=== PATIENT | male | born 1960 | race Two or more races ===

== ENCOUNTER 2025-05-25 08:50 | Observation (INO) | payer BC ==
--- NOTE | 2025-05-25 09:34 | ED ---
General Adult HPI - General Chief complaint: Chest Pain Stated complaint: Chest pain Time Seen by Provider: 05/25/25 08:59 Source: patient Mode of arrival: ambulatory Limitations: no limitations - History of Present Illness Initial comments: Dictation was produced using [employer] dictation software. please excuse any grammatical, word or spelling errors. Chief Complaint: 64-year-old male with chest pain History of Present Illness: Patient 64-year-old male presents to the emergency department chest pain. Patient has history of coronary artery disease states that he has substernal chest pain not associate diaphoresis or nausea. He has been having ongoing intermittent episodes of chest pain for the last month. The ROS documented in this emergency department record has been reviewed and confirmed by me. Those systems with pertinent positive or negative responses have been documented in the HPI. All other systems are other negative and/or no ncontributory. - Related Data Home Medications Medication Instructions Recorded Confirmed Atorvastatin [Lipitor] 40 mg PO DAILY 05/25/25 05/25/25 Cholecalciferol (Vitamin D3) 125 mcg PO DAILY 05/25/25 05/25/25 [Vitamin D3 (125 MCG = 5,000 IU)] Glimepiride [Amaryl] 4 mg PO BID 05/25/25 05/25/25 HYDROcodone/APAP 10-325MG [[place] 1 tab PO TID PRN 05/25/25 05/25/25 10-325] Isosorbide Mononitrate ER [Imdur] 30 mg PO DAILY 05/25/25 05/25/25 Nitroglycerin Sl Tabs [Nitrostat] 0.4 mg SL Q5M PRN 05/25/25 05/25/25 Semaglutide [Rybelsus] 7 mg PO DAILY 05/25/25 05/25/25 carvediloL [Coreg] 3.125 mg PO BID 05/25/25 05/25/25 lisinopriL [Zestril] 5 mg PO DAILY 05/25/25 05/25/25 metFORMIN HCL [Glucophage] 250 mg PO DAILY 05/25/25 05/25/25 Allergies Allergy/AdvReac Type Severity Reaction Status Date / Time No Known Allergies Allergy Verified 05/25/25 11:12 Review of Systems ROS Statement: Those systems with pertinent positive or pertinent negative responses have been documented in the HPI. ROS Other: All systems not noted in ROS Statement are negative. Past Medical History Past Medical History: Dialysis, Hyperlipidemia, Hypertension History of Any Multi-Drug Resistant Organisms: None Reported Past Surgical History: Heart Catheterization With Stent, Tonsillectomy Past Psychological History: No Psychological Hx Reported Smoking Status: Never smoker Past Alcohol Use History: Rare Past Drug Use History: Marijuana General Exam - General Exam Comments Initial Comments: PHYSICAL EXAM: General Impression: Alert and oriented x3, not in acute distress HEENT: Normocephalic atraumatic, extra-ocular movements intact, pupils equal and reactive to light bilaterally, mucous membranes moist. Cardiovascular: Heart regular rate and rhythm Chest: Able to complete full sentences, no retractions, no tachypnea Abdomen: abdomen soft, non-tender, non-distended, no organomegaly Musculoskeletal: Pulses present and equal in all extremities, no peripheral edema Motor: no focal deficits noted Neurological: CN II-XII grossly intact, no focal motor or sensory deficits noted Skin: Intact with no visualized rashes Psych: Normal affect and mood Limitations: no limitations Course Vital Signs 05/25/25 08:53 Temperature 97.4 F L Pulse Rate 102 H Respiratory 20 Rate Blood Pressure 145/82 O2 Sat by Pulse 99 Oximetry EKG Findings - EKG Comments: EKG Findings:: My EKG interpretation: Ventricular rate 94, sinus rhythm, OH interval 143, QRS 112, QTc 388. No OH prolongation, no QTC prolongation, no ST or T-wave changes noted. Overall, this EKG is unremarkable Medical Decision Making - Medical Decision Making Was pt. sent in by a medical professional or institution (, PA, MARBLE SETTER, urgent care, hospital, or jail...) When possible be specific @ -No Did you speak to anyone other than the patient for history (EMS, parent, family, police, friend...)? What history was obtained from this source @ -No Did you review nursing and triage notes (agree or disagree)? Why? @ -I reviewed and agree with nursing and triage notes Were old charts reviewed (outside hosp., previous admission, EMS record, old EKG, old radiological studies, urgent care reports/EKG's, jail records)? Report findings @ -No old charts were reviewed Differential Diagnosis (chest pain, altered mental status, abdominal pain women, abdominal pain men, vaginal bleeding, musculoskeletal, weakness, fever, dyspnea, syncope, headache, dizziness, GI bleed, back pain, seizure, CVA, palpatations, mental health)? @ -Differential Chest Pain: Stable Angina, Unstable Angina, STEMI, NSTEMI Aortic Dissection, Pneumothorax, Musculoskeletal, Esophageal Spasm GERD, Cholecystitis, Pancreatitis, Zoster, this is not meant to be an all-inclusive list. EKG interpreted by me (3pts min.). @ -See above X-rays interpreted by me (1pt min.). @ -Chest x-ray is nonacute CT interpreted by me (1pt min.). @ -None done U/S interpreted by me (1pt. min.). @ -None done What testing was considered but not performed or refused? (CT, X-rays, U/S, labs)? Why? @ -None What meds were considered but not given or refused? Why? @ -None Was smoking cessation discussed for >3mins.? @ -No Were there social determinants of health that impacted care today? How? (Homelessness, low income, unemployed, alcoholism, drug addiction, transportation, low edu. Level, literacy, decrease access to med. care, care home, rehab)? @ -No Was there de-escalation of care discussed even if they declined (Discuss DNR or withdrawal of care, Hospice)? DNR status @ -No What co-morbidities impacted this encounter? (DM, HTN, Smoking, COPD, CAD, Cancer, CVA, ARF, Chemo, Hep., AIDS, mental health diagnosis, sleep apnea, morbid obesity)? @ -Coronary artery disease Was patient admitted / discharged? Hospital course, mention meds given and route, prescriptions, significant lab abnormalities, going to OR and other pertinent info. @ -64-year-old male with chest pain concerning for ACS. Vital signs stable. Laboratory evaluation is unremarkable. EKG is negative. Patient be admitted to cardiology in consultation. Case discussed with hospitalist for admission Did you discuss the management of the patient with other professionals (professionals i.e. , PA, MARBLE SETTER, lab, RT, psych nurse, social media strategist, personal service workers, teacher, transit authority police officer, counseling case manager)? Give summary @ -See above Was critical care preformed (if so, how long)? @ -No Undiagnosed new problem with uncertain prognosis? @ -No Drug Therapy requiring intensive monitoring for toxicity (Heparin, Nitro, Insulin, Cardizem)? @ -No Were any procedures done? @ -No Diagnosis/symptom? Acute, or Chronic, or Acute on Chronic? Uncomplicated (without systemic symptoms) or Complicated (systemic symptoms)? @ -Chest pain Side effects of treatment? @ -No Exacerbation, Progression, or Severe Exacerbation? @ -No Poses a threat to life or bodily function? How? (Chest pain, [place], [place], pneumonia, PE, COPD, DKA, ARF, appy, cholecystitis, CVA, Diverticulitis, Homicidal, Suicidal, threat to staff... and all critical care pts) @ -Yes - Lab Data Result diagrams: 05/25/25 09:40 05/25/25 09:40 Lab Results 05/25/25 05/25/25 05/25/25 Range/Units 09:40 09:40 09:40 WBC 8.47 (4.50-10.00) 10*3/uL RBC 5.19 (4.40-5.60) 10*6/uL Hgb 15.8 (13.0-17.0) g/dL Hct 45.8 (39.6-50.0) % MCV 88.2 (80.0-97.0) fL MCH 30.4 (27.0-32.0) pg MCHC 34.5 (32.0-37.0) g/dL Plt Count 151 (140-440) 10*3/uL MPV 10.2 (9.5-12.2) fL Immature Gran % (Auto) 0.4 % Neutrophils % 68.0 % Lymphocytes % 23.0 % Monocytes % 6.8 % Eosinophils % 1.3 % Basophils % 0.5 % Immature Gran # 0.03 (0.00-0.04) 10*3/uL Neutrophils # 5.76 (1.80-7.70) 10*3/uL Lymphocytes # 1.95 (0.90-5.00) 10*3/uL Monocytes # 0.58 (0.20-1.00) 10*3/uL Eosinophils # 0.11 (0.04-0.35) 10*3/uL Basophils # 0.04 (0.00-0.10) 10*3/uL PT 11.1 (10.0-12.5) sec INR 1.0 (<1.2) APTT 23.6 (22.0-30.0) sec Sodium 133 L (137-145) mmol/L Potassium 4.9 (3.5-5.1) mmol/L Chloride 102 (98-107) mmol/L Carbon Dioxide 19 L (22-30) mmol/L Anion Gap 12 mmol/L BUN 16 (9-20) mg/dL Creatinine 0.62 L (0.66-1.25) mg/dL Est GFR (CKD-EPI)AfAm >90 (>60 ml/min/1.73 sqM) Est GFR (CKD-EPI)NonAf >90 (>60 ml/min/1.73 sqM) Glucose 275 H (74-99) mg/dL Calcium 9.8 (8.4-10.2) mg/dL Magnesium 1.5 L (1.6-2.3) mg/dL Total Bilirubin 1.1 (0.2-1.3) mg/dL AST 36 (17-59) U/L ALT 32 (4-49) U/L Alkaline Phosphatase 103 (38-126) U/L Troponin I (0.000-0.034) ng/mL Total Protein 7.5 (6.3-8.2) g/dL Albumin 4.0 (3.5-5.0) g/dL / Range/Units 09:40 WBC (4.50-10.00) 10*3/uL RBC (4.40-5.60) 10*6/uL Hgb (13.0-17.0) g/dL Hct (39.6-50.0) % MCV (80.0-97.0) fL MCH (27.0-32.0) pg MCHC (32.0-37.0) g/dL Plt Count (140-440) 10*3/uL MPV (9.5-12.2) fL Immature Gran % (Auto) % Neutrophils % % Lymphocytes % % Monocytes % % Eosinophils % % Basophils % % Immature Gran # (0.00-0.04) 10*3/uL Neutrophils # (1.80-7.70) 10*3/uL Lymphocytes # (0.90-5.00) 10*3/uL Monocytes # (0.20-1.00) 10*3/uL Eosinophils # (0.04-0.35) 10*3/uL Basophils # (0.00-0.10) 10*3/uL PT (10.0-12.5) sec INR (<1.2) APTT (22.0-30.0) sec Sodium (137-145) mmol/L Potassium (3.5-5.1) mmol/L Chloride (98-107) mmol/L Carbon Dioxide (22-30) mmol/L Anion Gap mmol/L BUN (9-20) mg/dL Creatinine (0.66-1.25) mg/dL Est GFR (CKD-EPI)AfAm (>60 ml/min/1.73 sqM) Est GFR (CKD-EPI)NonAf (>60 ml/min/1.73 sqM) Glucose (74-99) mg/dL Calcium (8.4-10.2) mg/dL Magnesium (1.6-2.3) mg/dL Total Bilirubin (0.2-1.3) mg/dL AST (17-59) U/L ALT (4-49) U/L Alkaline Phosphatase (38-126) U/L Troponin I <0.012 (0.000-0.034) ng/mL Total Protein (6.3-8.2) g/dL Albumin (3.5-5.0) g/dL Disposition Clinical Impression: Chest pain Disposition: ADMITTED IP TO THIS [facility] Condition: Fair Referrals: Lawrence Kennedy MD [Primary Care Provider] - 1-2 days Decision Time: 12:04
[2025-05-25 10:03] LABS: Basophils # (A) 0.04 10*3/uL (0.00-0.10); Basophils % (A) 0.5 %; Eosinophils # (A) 0.11 10*3/uL (0.04-0.35); Eosinophils % (A) 1.3 %; HCT 45.8 % (39.6-50.0); HGB 15.8 g/dL (13.0-17.0); Lymphocytes # (A) 1.95 10*3/uL (0.90-5.00); Lymphocytes % (A) 23.0 %; MCH 30.4 pg (27.0-32.0); MCHC 34.5 g/dL (32.0-37.0); MCV 88.2 fL (80.0-97.0); Monocytes # (A) 0.58 10*3/uL (0.20-1.00); Monocytes % (A) 6.8 %; Neutrophils # (A) 5.76 10*3/uL (1.80-7.70); Neutrophils % (A) 68.0 %; Platelet Count 151 10*3/uL (140-440); RBC 5.19 10*6/uL (4.40-5.60); RDW 12.4 % (11.5-14.5); WBC 8.47 10*3/uL (4.50-10.00)
--- NOTE | 2025-05-25 10:15 | XR ---
EXAMINATION TYPE: XR chest 2V DATE OF EXAM: 05/25/2025 10:11 AM COMPARISON: Chest radiograph 10/10/2010 TECHNIQUE: XR chest 2V Frontal and lateral views of the chest. CLINICAL INDICATION:Male, 64 years old with history of Chest Pain; FINDINGS: Lungs/Pleura: There is no evidence of pleural effusion, focal consolidation, or pneumothorax. Pulmonary vascularity: Unremarkable. Heart/mediastinum: Cardiomediastinal silhouette is unremarkable. Musculoskeletal: Multiple level degenerative disc disease changes seen throughout the spine. IMPRESSION: No acute cardiopulmonary disease/process. [facility], , 05/25/2025 10:12 AM
[2025-05-25 10:21] LABS: ALT 32 U/L (4-49); African American GFR (CKD) >90 (>60 ml/min/1.73 sqM); Albumin 4.0 g/dL (3.5-5.0); Anion Gap 12 mmol/L; Blood Urea Nitrogen 16 mg/dL (9-20); Calcium 9.8 mg/dL (8.4-10.2); Carbon Dioxide 19 mmol/L (22-30); Chloride 102 mmol/L (98-107); Glucose 275 mg/dL (74-99); Non-African American GFR(CKD) >90 (>60 ml/min/1.73 sqM); Sodium 133 mmol/L (137-145); Total Protein 7.5 g/dL (6.3-8.2)
[2025-05-25 10:23] LABS: AST 36 U/L (17-59); Alkaline Phosphatase 103 U/L (38-126); Magnesium 1.5 mg/dL (1.6-2.3); Potassium 4.9 mmol/L (3.5-5.1)
[2025-05-25 10:39] LABS: INR 1.0 (<1.2); Partial Thromboplastin Time 23.6 sec (22.0-30.0); Prothrombin Time 11.1 sec (10.0-12.5)
[2025-05-25] MEDS ORDERED: NITROGLYCERIN SL TABS 0.4 MG TAB SUBLINGUAL PRN (12:00)
[2025-05-25] MEDS: ASPIRIN 81 MG PO STA (12:30)
--- NOTE | 2025-05-25 13:05 | P.CRDCN ---
History of Present Illness History of present illness: HISTORY OF PRESENT ILLNESS: This is a 64-year-old male with a past medical history significant for coronary artery disease, cardiomyopathy, hypertension, hyperlipidemia, and diabetes. Jennifer carrillopraveen follows in the office with Dr. Lyle. We have been asked to see the patient in consultation for chest pain. Patient examined at the bedside in the emergency room. Patient states that he woke up at 5:00 in the morning from sleep with chest discomfort. He states the pain was in the middle of his chest. He denied any radiation of the pain. He states the pain was worse with deep inspiration. He also reports having some nausea. At the time of examination he is chest pain-free. DIAGNOSTICS: - EKG reveals sinus mechanism with LVH. - Chest xray negative for acute process - Laboratory data: Troponin negative x 1 - Current home cardiac medications include Imdur 30 mg daily, carvedilol 3.125 mg twice a day, Lipitor 40 mg daily, lisinopril 5 mg daily. - Most recent echocardiogram obtained in August 2024 revealed ejection fraction 42%, mild MR, mild TR - Cardiac catheterization history: July 2015 revealing 40% mid LAD, 95% mid circumflex, 100% mid RCA, right dominant system. Patient underwent stenting of the mid circumflex. - Patient underwent Lexiscan stress test in September 2024 revealing EF 45%, fixed inferior and inferior lateral defect REVIEW OF SYSTEMS: At the time of my exam: CONSTITUTIONAL: Denies fever or chills. HEENT: Denies blurred vision, vision changes, or eye pain. Denies hemoptysis CARDIOVASCULAR: Denies chest pain. Denies orthopnea. Denies PND. Denies palpitations RESPIRATORY: Denies shortness of breath. GASTROINTESTINAL: Denies abdominal pain. Denies nausea or vomiting. HEMATOLOGIC: Denies bleeding disorders. GENITOURINARY: Denies any blood in urine. SKIN: Denies pruitis. Denies rash. PHYSICAL EXAM: VITAL SIGNS: Reviewed. GENERAL: Well-developed in no acute distress. HEENT: Head is normocephalic. Pupils are equal, round. Sclerae anicteric. Mucous membranes of the mouth are moist. Neck supple. No JVD or thyromegaly LUNGS: Respirations even and unlabored. Lungs essentially clear to auscultation bilaterally. HEART: Regular rate and rhythm. S1 and S2 heard. ABDOMEN: Soft. Nondistended. Nontender. EXTREMITIES: Normal range of motion. No clubbing or cyanosis. Peripheral pulses intact. No lower extremity edema NEUROLOGIC: Awake and alert. Oriented x 3. ASSESSMENT: Chest pain, atypical, respirophasic, troponin negative x 1 Coronary artery disease with previous stenting Ischemic cardiomyopathy, EF 42% Hypertension Hyperlipidemia Diabetes Obesity: BMI 38.6 PLAN: Obtain 2D echo to assess cardiac structure and function Trend troponins Resume home cardiac medications Continue to monitor patient for additional 24 hours Possible discharge home tomorrow pending troponins and echocardiogram Nurse practitioner note has been reviewed by physician. Signing provider agrees with the documented findings, assessment, and plan of care documented by DEVICE TEST ENGINEER as a scribe. Past Medical History Past Medical History: Dialysis, Hyperlipidemia, Hypertension History of Any Multi-Drug Resistant Organisms: None Reported Past Surgical History: Heart Catheterization With Stent, Tonsillectomy Past Psychological History: No Psychological Hx Reported Smoking Status: Never smoker Past Alcohol Use History: Rare Past Drug Use History: Marijuana Medications and Allergies Home Medications Medication Instructions Recorded Confirmed Type Atorvastatin [Lipitor] 40 mg PO DAILY 05/25/25 05/25/25 History Cholecalciferol (Vitamin D3) 125 mcg PO DAILY 05/25/25 05/25/25 History [Vitamin D3 (125 MCG = 5,000 IU)] Glimepiride [Amaryl] 4 mg PO BID 05/25/25 05/25/25 History HYDROcodone/APAP 10-325MG [[place] 1 tab PO TID PRN 05/25/25 05/25/25 History 10-325] Isosorbide Mononitrate ER [Imdur] 30 mg PO DAILY 05/25/25 05/25/25 History Nitroglycerin Sl Tabs [Nitrostat] 0.4 mg SL Q5M PRN 05/25/25 05/25/25 History Semaglutide [Rybelsus] 7 mg PO DAILY 05/25/25 05/25/25 History carvediloL [Coreg] 3.125 mg PO BID 05/25/25 05/25/25 History lisinopriL [Zestril] 5 mg PO DAILY 05/25/25 05/25/25 History metFORMIN HCL [Glucophage] 250 mg PO DAILY 05/25/25 05/25/25 History Allergies Allergy/AdvReac Type Severity Reaction Status Date / Time No Known Allergies Allergy Verified 05/25/25 11:12 Physical Exam Vitals: Vital Signs Temp Pulse Resp BP Pulse Ox 05/25/25 08:53 97.4 F L 102 H 20 145/82 99 Intake and Output 05/24/25 05/25/25 05/25/25 22:59 06:59 14:59 Other: Weight 102.058 kg Results 05/25/25 09:40 05/25/25 09:40 Cardiac Enzymes 05/25/25 05/25/25 05/25/25 Range/Units 09:40 09:40 12:07 AST 36 (17-59) U/L Troponin I <0.012 <0.012 (0.000-0.034) ng/mL Coagulation 05/25/25 Range/Units 09:40 PT 11.1 (10.0-12.5) sec APTT 23.6 (22.0-30.0) sec CBC 05/25/25 Range/Units 09:40 WBC 8.47 (4.50-10.00) 10*3/uL RBC 5.19 (4.40-5.60) 10*6/uL Hgb 15.8 (13.0-17.0) g/dL Hct 45.8 (39.6-50.0) % Plt Count 151 (140-440) 10*3/uL Comprehensive Metabolic Panel 05/25/25 Range/Units 09:40 Sodium 133 L (137-145) mmol/L Potassium 4.9 (3.5-5.1) mmol/L Chloride 102 (98-107) mmol/L Carbon Dioxide 19 L (22-30) mmol/L BUN 16 (9-20) mg/dL Creatinine 0.62 L (0.66-1.25) mg/dL Glucose 275 H (74-99) mg/dL Calcium 9.8 (8.4-10.2) mg/dL AST 36 (17-59) U/L ALT 32 (4-49) U/L Alkaline Phosphatase 103 (38-126) U/L Total Protein 7.5 (6.3-8.2) g/dL Albumin 4.0 (3.5-5.0) g/dL Current Medications Generic Name Dose Route Start Last Admin Trade Name Freq PRN Reason Stop Dose Admin Aspirin 81 mg 05/26/25 09:00 Aspirin 81 Mg PO DAILY [facility] Atorvastatin Calcium 40 mg 05/26/25 09:00 Atorvastatin 40 Mg Tab PO DAILY [facility] Carvedilol 3.125 mg 05/25/25 17:30 Carvedilol 3.125 Mg Tab PO BID-W/MEALS KAREN Isosorbide Mononitrate 30 mg 05/26/25 09:00 Isosorbide Mononitrate Er 30 Mg Tab.Er.24h PO DAILY [facility] Lisinopril 5 mg 05/26/25 09:00 Lisinopril 5 Mg Tab PO DAILY [facility] Nitroglycerin 0.4 mg 05/25/25 12:00 Nitroglycerin Sl Tabs 0.4 Mg Tab SUBLINGUAL Q5M PRN Chest Pain Intake and Output 05/24/25 05/25/25 05/25/25 22:59 06:59 14:59 Other: Weight 102.058 kg Patient Weight 05/26/25 06:59 Weight 102.058 kg 05/25/25 09:40 05/25/25 09:40
[2025-05-25 20:57] LABS: Glucose,Whole Blood 296 mg/dL (70-110)
[2025-05-25 21:58] VITALS: RESP 17
--- NOTE | 2025-05-26 07:40 | CA ---
Transthoracic Echo Report Name: Chris Esposito Age: 64 Gender: M : 1960 Exam Date: 05/25/2025 15:47 Exam Location: [facility] Ht (in): 64 Wt (lb): 225 Ordering Physician: Amy Roper Attending/Referring Phys: [id number], Jacquelin Tap Out Operator Letitia Moody [facility] Procedure CPT: Indications: CP Cardiac Hx: Technical Quality: Technically difficult study Contrast 1: Definity Total Dose (mL): 2 Contrast 2: Total Dose (mL): MEASUREMENTS (Male / Female) Normal Values 2D ECHO LV Diastolic Diameter PLAX 3.6 cm 4.2 - 5.9 / 3.9 - 5.3 cm LV Systolic Diameter PLAX 2.7 cm IVS Diastolic Thickness 0.9 cm 0.6 - 1.0 / 0.6 - 0.9 cm LVPW Diastolic Thickness 1.4 cm 0.6 - 1.0 / 0.6 - 0.9 cm LV Relative Wall Thickness 0.6 RV Internal Dim ED PLAX 3.0 cm LVOT Diameter 1.9 cm LA Systolic Diameter LX 2.6 cm 3.0 - 4.0 / 2.7 - 3.8 cm LA Volume 50.6 cm??? 18 - 58 / 22 - 52 cm??? LA Volume Index 23.0 cm???/m??? 16 - 28 cm???/m??? Ascending Aorta Diameter 3.6 cm M-MODE Aortic Root Diameter MM 3.1 cm AV Cusp Separation MM 2.1 cm DOPPLER AV Peak Velocity 117.6 cm/s AV Peak Gradient 5.5 mmHg LVOT Peak Velocity 82.0 cm/s LVOT Peak Gradient 2.7 mmHg AV Area Cont Eq pk 2.0 cm??? MV Area PHT 4.5 cm??? Mitral E Point Velocity 74.1 cm/s Mitral A Point Velocity 109.5 cm/s Mitral E to A Ratio 0.7 MV Deceleration Time 168.8 ms PV Peak Velocity 74.0 cm/s PV Peak Gradient 2.2 mmHg FINDINGS Left Ventricle Left ventricular ejection fraction is visually estimated at 45-50 %. Left ventricular cavity size normal. Mildly increased left ventricular wall thickness. . Inferior and inferolateral hypokinesis. Right Ventricle Normal right ventricular size and function. Right ventricular systolic pressure within normal limits. Right Atrium Normal right atrial size. No right atrial thrombus or mass seen. Left Atrium Normal left atrial size. No left atrial thrombus or mass present. Mitral Valve Structurally normal mitral valve. Mitral annular calcification. No mitral stenosis. Trace to mild mitral regurgitation. Aortic Valve Aortic valve not well visualized. No aortic stenosis. No aortic regurgitation. Tricuspid Valve Structurally normal tricuspid valve. No tricuspid regurgitation. Pulmonic Valve Pulmonic valve not well visualized. No pulmonic regurgitation. Pericardium No pericardial effusion. No pleural effusion. Aorta Normal size aortic root. not well visualized proximal ascending aorta. CONCLUSIONS Technically difficult study. Definity ECHO contrast used for improved visualization of the endocardial borders (inadequate visualization of two or more contiguous segments). Mildly impaired systolic function of the left ventricle with segmental wall motion abnormality Limited Doppler study with trace to mild mitral regurg Previewed by: Dr. Farzaneh Lyle MD (Electronically Signed) Final Date: 26 May 2025 07:39
[2025-05-26 07:44] VITALS: BP 111/75; PULSE 89; TEMP 97.9
[2025-05-26 08:29] LABS: Cholesterol 201.00 mg/dL (0.00-200.00); HDL Cholesterol 46.40 mg/dL (40.00-60.00); LDL Cholesterol,Calculated 137.1 mg/dL (0.0-131.0); Triglycerides 87.70 mg/dL (0.00-149.00); VLDL Calculation 17.54 mg/dL (5.00-40.00)
[2025-05-26] MEDS ORDERED: ASPIRIN 325 MG TAB PO SCH (09:00)
[2025-05-26] MEDS: ATORVASTATIN 40 MG TAB PO SCH (09:17)
[2025-05-26] MEDS: ISOSORBIDE MONONITRATE ER 30 MG TAB.ER.24H PO SCH (09:17)
[2025-05-26] MEDS: ASPIRIN 81 MG PO SCH (09:17)
--- NOTE | 2025-05-26 11:57 | P.PN ---
Subjective HISTORY OF PRESENT ILLNESS: This is a 64-year-old male with a past medical history significant for coronary artery disease, cardiomyopathy, hypertension, hyperlipidemia, and diabetes. Patient follows in the office with Dr. Lyle. We have been asked to see the patient in consultation for chest pain. Patient examined at the bedside in the emergency room. Patient states that he woke up at 5:00 in the morning from sleep with chest discomfort. He states the pain was in the middle of his chest. He denied any radiation of the pain. He states the pain was worse with deep inspiration. He also reports having some nausea. At the time of examination he is chest pain-free. DIAGNOSTICS: - EKG reveals sinus mechanism with LVH. - Chest xray negative for acute process - Laboratory data: Troponin negative x 1 - Current home cardiac medications include Imdur 30 mg daily, carvedilol 3.125 mg twice a day, Lipitor 40 mg daily, lisinopril 5 mg daily. - Most recent echocardiogram obtained in August 2024 revealed ejection fraction 42%, mild MR, mild TR - Cardiac catheterization history: July 2015 revealing 40% mid LAD, 95% mid circumflex, 100% mid RCA, right dominant system. Patient underwent stenting of the mid circumflex. - Patient underwent Lexiscan stress test in September 2024 revealing EF 45%, fixed inferior and inferior lateral defect 05/26/2025 Patient examined this morning at bedside. Patient denies any further episodes of chest pain or pressure. He denies shortness of breath. Vital signs are stable. Troponins negative x 3. Echocardiogram completed revealing ejection fraction 45 to 50%, inferior and inferior lateral hypokinesis, trace to mild MR PHYSICAL EXAM: VITAL SIGNS: Reviewed. GENERAL: Well-developed in no acute distress. HEENT: Head is normocephalic. Pupils are equal, round. Sclerae anicteric. Mucous membranes of the mouth are moist. Neck supple. No JVD or thyromegaly LUNGS: Respirations even and unlabored. Lungs essentially clear to auscultation bilaterally. HEART: Regular rate and rhythm. S1 and S2 heard. ABDOMEN: Soft. Nondistended. Nontender. EXTREMITIES: Normal range of motion. No clubbing or cyanosis. Peripheral pulses intact. No lower extremity edema NEUROLOGIC: Awake and alert. Oriented x 3. ASSESSMENT: Chest pain, atypical, respirophasic, troponin negative x 1 Coronary artery disease with previous stenting Ischemic cardiomyopathy, EF 42% Hypertension Hyperlipidemia Diabetes Obesity: BMI 38.6 PLAN: Continue current cardiac medications Patient is stable for discharge home today from a cardiac standpoint He is to follow-up in the office with Dr. Lyle We will sign off. Please reconsult if needed. Nurse practitioner note has been reviewed by physician. Signing provider agrees with the documented findings, assessment, and plan of care documented by CAFETERIA CLERK as a scribe. Objective - Vital Signs Vital signs: Vital Signs Temp 97.9 F 05/26/25 07:00 Pulse 89 05/26/25 07:00 Resp 17 05/26/25 07:00 BP 111/75 05/26/25 07:00 Pulse Ox 99 05/26/25 07:00 FiO2 Intake & Output 05/25/25 05/26/25 05/26/25 18:59 06:59 18:59 Weight 102.058 kg 102.058 kg Other: # Voids 2 - Labs CBC & Chem 7: 05/25/25 09:40 05/25/25 09:40 Labs: Abnormal Lab Results - Last 24 Hours (Table) 05/25/25 05/25/25 Range/Units 09:40 20:56 POC Glucose (mg/dL) 296 H (70-110) mg/dL Cholesterol 201.00 H (0.00-200.00) mg/dL LDL Cholesterol, Calc 137.1 H (0.0-131.0) mg/dL
--- NOTE | 2025-05-26 14:08 | HP ---
HISTORY AND PHYSICAL CHIEF COMPLAINT: Chest pain. HISTORY OF PRESENT ILLNESS: This is another admission for this 64-year-old Latin gentleman. He has had previous coronary artery disease with stenting. He came to the emergency room with chest pain, which he described as, "I just like having a heart attack." However, he described as being sharp and lasting for half an hour or so. He had no diaphoresis, shortness of breath, radiation of the pain, etc. In the emergency room, his studies were negative. Past medical history, family history and personal and social histories are obtained and are noncontributory. He has not been in the office since December 2024. REVIEW OF SYSTEMS: Otherwise unremarkable. PHYSICAL EXAMINATION: VITAL SIGNS: Normal. HEAD, EARS, EYES, NOSE, MOUTH AND THROAT: Were unremarkable. Neck veins are not distended. CHEST: Clear. CARDIAC: Normal sinus rhythm and no murmurs or extra sounds. ABDOMEN: Protuberant, soft and nontender without any visceromegaly or masses. Bowel sounds present. EXTREMITIES: Normal. NEUROLOGIC: He is intact. He was admitted to the hospital. DIAGNOSES: 1. Chest pain. 2. History of coronary artery disease. 3. Atherosclerotic cardiovascular disease. 4. History of hypertension. PLAN: 1. Bedrest. 2. IV fluids. 3. Serial EKGs and enzymes. 4. Consult Cardiology. MMODL / IJN: [id number] /
--- NOTE | 2025-05-27 02:41 | DS ---
DISCHARGE SUMMARY CHIEF COMPLAINT: Chest pain. HISTORY OF PRESENT ILLNESS AND PHYSICAL EXAMINATION: Details of this man's history and physical can be found in the initial workup. LABORATORY STUDIES: While he is in a hospital, he had laboratory studies, details of which can be found in the laboratory section of his chart. COURSE IN THE HOSPITAL: After admission, he was placed on bedrest, started on intravenous fluids, and had serial EKGs and enzymes. They were normal. Seen by Cardiology. They felt there was no further intervention necessary, and that he could be discharged. He will go home on his usual activity, diet, medications, and follow up in several days. FINAL DIAGNOSES: 1. Chest pain. 2. History of coronary artery disease. 3. ASCVD. 4. Hypertension. 5. Type 2 diabetes. OPERATIONS: None. CONSULTATIONS: Cardiology. THANG / PRASHANTH: [id number] /
== END 2025-05-26 14:53 | disposition home or self-care (01) ==
LOC: EC 08:50 → 6NMEDSUR 12:00
PROVIDERS: ADMIT Family Medicine; ATTEND Family Medicine
DX: R07.89 Other chest pain (principal); I25.10 Atherosclerotic heart disease of native coronary artery without angina pectoris; I25.5 Ischemic cardiomyopathy; I10 Essential (primary) hypertension; E78.5 Hyperlipidemia, unspecified; E11.9 Type 2 diabetes mellitus without complications; R11.0 Nausea; E66.9 Obesity, unspecified; Z68.38 Body mass index [BMI] 38.0-38.9, adult; Z79.84 Long term (current) use of oral hypoglycemic drugs; Z79.899 Other long term (current) drug therapy
CPT/HCPCS: 99285; 36415; 93005 ×2; 93306; 80061; 80053; 83735; 84484; 85025; 85610; 85730; 71046; G0378 ×2; Q9957